=== PATIENT | male | born 1965 | race Caucasian/White ===

== ENCOUNTER 2016-11-09 12:00 | Emergency (ER) | payer MEDICARE, MEDICAID ==
--- NOTE | 2016-11-09 12:42 | ED Physician Chart ---
Chief Complaint/HPI - Patient Information Date Seen:: 11/09/16 Time Seen:: 12:00 Chief Complaint:: COUGH History of Present Illness:: THIS IS A CHRONICALLY ILL 51 YO MALE MENTALLY ILL PATIENT SENT HERE FOR AN EVALUATION OF HE URI SYMPTOMS. HE HAS BEEN COUGHING WITH A LOW GRADE FEVER. HE IS NOT PRODUCING SPUTUM, NO FEVER, NO DIARRHEA, NO CONSTIPATION. HE DENIES PAINFUL URINATION AND HE DENIES ABDOMINAL PAIN. HE DENIES HAVING PNEUMONIA AND T.B. IN THE PAST. Allergies:: Allergies Allergy/AdvReac Type Severity Reaction Status Date / Time No Known Allergies Allergy Verified 03/14/16 18:54 Vitals:: Vital Signs - 8 hr 11/09/16 12:10 Temp 99.2 F HR 88 RR 19 BP 132/72 O2 Sat % 96 Historian:: Patient, Medical Records Review:: Nurse's Note Reviewed Review of Systems - Review of Systems General/Constitutional: Fever, No chills, No weight loss, No weakness, No diaphoresis, No edema, No loss of appetite Skin: No skin lesions, No rash, No bruising Head: No headache, No light-headedness Eyes: No loss of vision, No pain, No diplopia ENT: No earache, No nasal drainage, No sore throat, No tinnitus Neck: No neck pain, No swelling, No thyromegaly, No stiffness, No mass noted Cardio Vascular: No chest pain, No palpitations, No PND, No orthopnea, No edema Pulmonary: No SOB, Cough, No sputum, No wheezing GI: No nausea, No vomiting, No diarrhea, No pain, No melena, No hematochezia, No constipation, No hematemesis G/U: No dysuria, No frequency, No hematuria Musculoskeletal: No bone or joint pain, No back pain, No muscle pain Endocrine: No polyuria, No polydipsia Psychiatric: No prior psych history, No depression, No anxiety, No suicidal ideation Hematopoietic: No bruising, No lymphadenopathy Allergic/Immuno: No urticaria, No angioedema Neurological: No syncope, No focal symptoms, No weakness, No paresthesia, No headache, No seizure, No dizziness, No confusion, No vertigo Past Medical History - Past Medical History Obtainable: Yes Past Medical History: Seizures, Other (MENTAL DISODER) Family History: None Social History: Non Smoker, No Alcohol, No Drug Use, Care Facility Psychiatricy History: Schizophrenia Medication: Reviewed Family Medical History - Family Member Mother History Unknown: Yes Physical Exam - Physical Examination General/Constitutional: Awake, Well-developed, well-nourished, Alert, No distress, GCS 15, Non-toxic appearing, Ambulatory Head: Atraumatic Eyes: Lids, conjuctiva normal, PERRL, EOMI Skin: Nl inspection, No rash, No skin lesions, No ecchymosis, Well hydrated, No lymphadenopathy ENMT: External ears, nose nl, Nasal exam nl, Lips, teeth, gums nl Neck: Nontender, Full ROM w/o pain, No JVD, No nuchal rigidity, No bruit, No mass, No stridor Respiratory: Nl effort/Exclusion, Clear to Auscultation Other Respiratory comments:: BILATERAL RHONCHI HEARD Cardio Vascular: RRR, No murmur, gallop, rubs, NL S1 S2 GI: No tenderness/rebounding/guarding, No organomegaly, No hernia, Normal BS's, Nondistended, No mass/bruits, No McBurney tenderness : No CVA tenderness Extremities: No tenderness or effusion, Full ROM, normal strength in all extremities, No edema, Normal digits & nails Neuro/Psych: Alert/oriented, DTR's symmetric, Normal sensory exam, Normal motor strength, Judgement/insight normal, Mood normal, Normal gait, No focal deficits Misc: normal gait, Normal back, No paraspinal tenderness Labs/Radiology/EKG Results - Lab Results Results: Laboratory Results - last 24 hr 11/09/16 11/09/16 11/09/16 12:38 12:38 12:38 WBC 4.2 L RBC 4.89 Hgb 14.9 Hct 45.4 MCV 92.8 MCH 30.5 H MCHC Differential 32.8 RDW 11.7 Plt Count 93 L MPV 8.8 Band Neutrophils % 1 Neutrophils (Manual) 58 Lymphocytes 25 Monocytes 16 H Platelet Estimate DECREASED PLATELETS Platelet Morphology NORMAL RBC Morph Micro Appear NORMAL PT 10.0 INR 0.96 PTT (Actin FS) 25.0 L Sodium Potassium Chloride Carbon Dioxide Anion Gap BUN Creatinine Est GFR ( Amer) Est GFR (Non-Af Amer) BUN/Creatinine Ratio Glucose Calcium Total Bilirubin AST ALT Alkaline Phosphatase Troponin I Total Protein Albumin Globulin Albumin/Globulin Ratio Triglycerides 150 Cholesterol 166 LDL Cholesterol Direct 99 HDL Cholesterol 43 TSH Urine Source Urine Color Urine Clarity Urine pH Ur Specific [place] Urine Protein Urine Glucose (UA) Urine Ketones Urine Blood Urine Nitrate Urine Bilirubin Urine Urobilinogen Ur Leukocyte Esterase Urine RBC Urine WBC Ur Epithelial Cells Urine Bacteria Valproic Acid Carbamazepine 11/09/16 11/09/16 11/09/16 12:38 12:38 12:38 WBC RBC Hgb Hct MCV MCH MCHC Differential RDW Plt Count MPV Band Neutrophils % Neutrophils (Manual) Lymphocytes Monocytes Platelet Estimate Platelet Morphology RBC Morph Micro Appear PT INR PTT (Actin FS) Sodium 140 Potassium 4.1 Chloride 103 Carbon Dioxide 28.0 Anion Gap 13.1 BUN 17 Creatinine 1.3 Est GFR ( Amer) > 60.0 Est GFR (Non-Af Amer) > 60.0 BUN/Creatinine Ratio 13.1 Glucose 79 Calcium 10.3 Total Bilirubin 0.5 AST 16 ALT 11 Alkaline Phosphatase 73 Troponin I 0.02 Total Protein 7.3 Albumin 4.7 Globulin 2.6 Albumin/Globulin Ratio 1.8 Triglycerides Cholesterol LDL Cholesterol Direct HDL Cholesterol TSH 0.89 Urine Source Urine Color Urine Clarity Urine pH Ur Specific [place] Urine Protein Urine Glucose (UA) Urine Ketones Urine Blood Urine Nitrate Urine Bilirubin Urine Urobilinogen Ur Leukocyte Esterase Urine RBC Urine WBC Ur Epithelial Cells Urine Bacteria Valproic Acid Carbamazepine 11/09/16 11/09/16 11/09/16 12:38 12:38 13:15 WBC RBC Hgb Hct MCV MCH MCHC Differential RDW Plt Count MPV Band Neutrophils % Neutrophils (Manual) Lymphocytes Monocytes Platelet Estimate Platelet Morphology RBC Morph Micro Appear PT INR PTT (Actin FS) Sodium Potassium Chloride Carbon Dioxide Anion Gap BUN Creatinine Est GFR ( Amer) Est GFR (Non-Af Amer) BUN/Creatinine Ratio Glucose Calcium Total Bilirubin AST ALT Alkaline Phosphatase Troponin I Total Protein Albumin Globulin Albumin/Globulin Ratio Triglycerides Cholesterol LDL Cholesterol Direct HDL Cholesterol TSH Urine Source CLEAN C Urine Color YELLOW Urine Clarity SL. CLOUDY Urine pH 6.0 Ur Specific [place] 1.020 Urine Protein NEGATIVE Urine Glucose (UA) NEGATIVE Urine Ketones TRACE Urine Blood NEGATIVE Urine Nitrate NEGATIVE Urine Bilirubin NEGATIVE Urine Urobilinogen 0.2 Ur Leukocyte Esterase NEGATIVE Urine RBC NONE SEEN Urine WBC NONE SEEN Ur Epithelial Cells RARE Urine Bacteria NONE SEEN Valproic Acid 70.5 Carbamazepine 7.5 - Radiology Results Results: CHEST X-RAY = NAD ED Septic Shock - . Is Septic Shock (SBP<90, OR Lactate>4 mmol\L) present?: No - <6hrs of presentation: Vital Signs: Vital Signs - 8 hr 11/09/16 12:10 Temp 99.2 F HR 88 RR 19 BP 132/72 O2 Sat % 96 Reassessment (Disposition) - Reassessment Reassessment Condition:: Unchanged, Improved - Diagnosis Diagnosis:: UPPER RESPIRATORY INFECTION - Aftercare/Follow up Instructions Aftercare/Follow-Up Instructions:: Counseled pt regarding lab results/diagnosis & need follow up, Refer to Discharge Instructions, Counseled pt & family regarding lab results/diagnosis & need follow up - Patient Disposition Discharge/Transfer:: Home Condition at Disposition:: Improved ED Discharge Plan - Patient Disposition Admit/Discharge/Transfer: PT DISCHARGED HOME Condition at Disposition: Improved
[2016-11-09 12:50] LABS: HEMATOCRIT 45.4 % (39.0-49.0); HEMOGLOBIN 14.9 gm/dL (13.2-17.3); MEAN CELL VOLUME 92.8 fl (80-99); MEAN CORPUSCULAR HEMOGLOBIN 30.5 pg (26.0-30.0); MEAN CORPUSCULAR HGB CONC 32.8 pg (28.0-36.0); MEAN PLATELET VOLUME 8.8 fl; PLATELET COUNT 93 Th/cmm (150-400); RED BLOOD COUNT 4.89 Mil/cmm (4.30-5.70); RED CELL DISTRIBUTION WIDTH 11.7 % (11.5-20.0); WHITE BLOOD COUNT 4.2 Th/cmm (4.8-10.8)
[2016-11-09] MEDS ORDERED: Acetaminophen 500 MG TAB ONE (12:50)
[2016-11-09 13:05] LABS: INR 0.96 (0.5-1.4)
[2016-11-09 13:08] LABS: ALB/GLOB RATIO 1.8 (1.0-1.8); ALKALINE PHOSPHATASE 73 U/L (34-104); ANION GAP 13.1 (7.0-16.0); BILIRUBIN,TOTAL 0.5 mg/dL (0.3-1.0); BUN - UREA NITROGEN 17 mg/dL (7-25); BUN/CREATININE RATIO 13.1; CALCIUM SERUM 10.3 mg/dL (8.6-10.3); CHLORIDE 103 mEq/L (98-107); CHOLESTEROL 166 mg/dL (<200); CREATININE - SERUM 1.3 mg/dL (0.7-1.3); GLUCOSE 79 mg/dL (70-105); POTASSIUM SERUM 4.1 mEq/L (3.5-5.1); SGOT 16 U/L (13-39); SGPT/ALT 11 U/L (7-52); SODIUM SERUM 140 mEq/L (136-145); TRIGLYCERIDES 150 mg/dL (<150)
--- NOTE | 2016-11-09 13:10 | Diagnostic Imaging Report ---
CHEST X-RAY: AP view INDICATION: Cough COMPARISON: 03/14/2016 FINDINGS: No focal consolidation or effusions. Exam is limited due to body habitus. Atherosclerosis is noted. Heart size is borderline prominent. Osseous structures are intact. IMPRESSION: Limited exam due to body habitus. No focal consolidation identified. Atherosclerotic vascular disease.
[2016-11-09 13:26] LABS: URINE BILIRUBIN NEGATIVE (NEGATIVE); URINE BLOOD NEGATIVE (NEGATIVE); URINE COLOR YELLOW; URINE GLUCOSE (UA) NEGATIVE (NEGATIVE); URINE KETONE TRACE mg/dL (NEGATIVE); URINE PROTEIN NEGATIVE (NEGATIVE); URINE UROBILINOGEN 0.2 E.U./dL (0.2 - 1.0)
[2016-11-09 13:31] LABS: URINE BACTERIA NONE SEEN /hpf (NONE SEEN); URINE EPITHELIAL CELLS RARE /lpf (FEW); URINE RBC NONE SEEN /hpf (0-5); URINE WBC NONE SEEN /hpf (0-5)
[2016-11-09 13:34] LABS: BAND NEUTROPHILE 1 % (0-10); NEUTROPHILS 58 % (40-80); TOTAL CELLS COUNTED 100
[2016-11-09 13:35] LABS: PLATELET ESTIMATE DECREASED PLATELETS (NORMAL); PLATELET MORPHOLOGY NORMAL (NORMAL)
== END 2016-11-09 14:09 | disposition home or self-care (01) ==
LOC: ER 12:00
DX: J06.9 Acute upper respiratory infection, unspecified (principal); F20.9 Schizophrenia, unspecified
CPT/HCPCS: 36415-UA; 71010-TC; 80053-TC; 80061-TC; 80156-TC; 80164-TC; 81001-TC; 84443-TC; 84484-TC; 85007-TC; 85027-TC; 85610-TC; 85730-TC; 86592-TC; Z7610